=== PATIENT | female | born 1975 | race Two or more races ===

== ENCOUNTER 2023-05-19 12:24 | Inpatient (IN) | payer SELFPAY ==
[2023-05-19] VITALS (10 sets, daily range): BP systolic 133–152; BP diastolic 58–83; PULSE 65–77; RESP 16–23; TEMP 98.7
[~2023-05-19] VITALS: Ht 160 cm; Wt 77.6 kg
[2023-05-19] MEDS: KETOROLAC 30MG/ML VIAL IV ONE (14:07)
[2023-05-19 15:29] LABS: ALANINE AMINOTRANSFERASE 21 IU/L (10-49); ALBUMIN 4.4 g/dL (3.2-4.8); ASPARTATE AMINOTRANSFERASE 21 IU/L (<34); BILIRUBIN TOTAL 0.6 mg/dL (0.1-1.0); CALCIUM 9.7 mg/dL (8.7-10.4); CARBON DIOXIDE 25 mEq/L (21-32); CHLORIDE 103 mEq/L (98-107); CREATININE 0.6 mg/dL (0.6-1.0); GLUCOSE 103 mg/dL (70-105); POTASSIUM 3.8 mEq/L (3.5-5.1); PROTEIN TOTAL 7.1 g/dL (6.0-8.3); SODIUM 141 mEq/L (136-145); UREA NITROGEN BLOOD 7 mg/dL (9-23)
[2023-05-19 15:35] LABS: TROPONIN I HIGH SENSITIVITY < 4 ng/L (3.0-34)
[2023-05-19] MEDS: DEXAMETHASONE 4MG/ML 1ML VIAL IV SCH (19:14)
[2023-05-19] MEDS: DEXT 5%/LACTATED RINGERS 1,000 ML IV SCH (19:15)
[2023-05-19] MEDS: LEVETIRACETAM 500MG PREMIX 100 ML IV SCH (20:51)
[2023-05-19] MEDS ORDERED: NICARDIPINE 100 MG in SODIUM CHLORIDE 0.9% 60 ML IV PRN (22:30)
[2023-05-19] MEDS: MORPHINE SULFATE 2 MG/ML CPJ (NOT FOR IM USE) IV PRN (23:01)
[2023-05-19] MEDS ORDERED: IOHEXOL-350 100 ML BOTTLE ONE (23:24)
[2023-05-20] VITALS (75 sets, daily range): BP systolic 109–152; BP diastolic 58–101; PULSE 64–88; RESP 11–27; TEMP 98–98.7
[2023-05-20 05:31] LABS: BASOPHILS % 0.3 % (0.0-2.0); EOSINOPHILS % 0.1 % (0.0-5.0); HEMATOCRIT. 38.1 % (36.0-48.0); HEMOGLOBIN. 13.1 g/dL (12.0-16.0); LYMPHOCYTES % 10.1 % (20.0-50.0); MEAN CORPUSCULAR HEMOGLOBIN 30.4 pg (28.0-32.0); MEAN CORPUSCULAR HGB CONC 34.5 g/dL (31.0-37.0); MEAN CORPUSCULAR VOLUME 88.2 fL (81.0-99.0); MEAN PLATELET VOLUME 7.8 fl (7.4-10.4); NEUTROPHILS % 88.5 % (40.0-76.0); PLATELET 320 x1000/uL (130-400); RED BLOOD CELL COUNT 4.32 mill/uL (4.2-5.4); RED CELL DISTRIBUTION WIDTH 13.2 % (11.6-14.6); WHITE BLOOD COUNT 8.6 x1000/uL (4.5-11.0)
[2023-05-20 05:44] LABS: CALCIUM 9.1 mg/dL (8.7-10.4); CARBON DIOXIDE 26 mEq/L (21-32); CHLORIDE 106 mEq/L (98-107); CREATININE 0.6 mg/dL (0.6-1.0); GLUCOSE 148 mg/dL (70-105); SODIUM 139 mEq/L (136-145); UREA NITROGEN BLOOD 9 mg/dL (9-23)
[2023-05-20 05:55] LABS: PARTIAL THROMBOPLASTIN TIME 25.6 sec (23.4-31.0); PROTHROMBIN TIME 11.2 sec (9.6-11.0)
[2023-05-20] MEDS ORDERED: CLONIDINE 0.1MG TABLET PO PRN (07:00)
[2023-05-20] MEDS ORDERED: ONDANSETRON HCL 4MG/2ML INJ IV PRN (07:00)
[2023-05-20] MEDS ORDERED: MAGNESIUM/ALUMINUM HYDROXIDE/SIMETHICONE 30ML UDC PO PRN (07:00)
[2023-05-20] MEDS ORDERED: DOCUSATE SODIUM 100MG CAPSULE PO PRN (07:00)
[2023-05-20] MEDS ORDERED: IPRATROPIUM/ALBUTEROL 0.5-3(2.5)MG/3ML NEB HHN PRN (07:00)
[2023-05-20] MEDS ORDERED: ACETAMINOPHEN 325MG TABLET PO PRN (07:00)
[2023-05-20] MEDS ORDERED: GUAIFENESIN 200MG/10ML SUGAR FREE UDC PO PRN (07:00)
[2023-05-20 08:31] LABS: FOLIC ACID (FOLATE) SERUM 13.25 ng/mL (>5.38); VITAMIN B12 SERUM 234 pg/mL (211-911)
[2023-05-20] MEDS: LEVETIRACETAM 500MG PREMIX 100 ML IV SCH (10:30)
[2023-05-20] MEDS: AMLODIPINE 5MG TABLET PO SCH (12:41)
[2023-05-20 14:42] LABS: CREATINE KINASE 45 IU/L (34-145)
[2023-05-20] MEDS: NICARDIPINE 100 MG in SODIUM CHLORIDE 0.9% 60 ML IV PRN (18:12)
[2023-05-20] MEDS: ATORVASTATIN CALCIUM 20MG TABLET PO SCH (21:10)
[2023-05-20] MEDS: FAMOTIDINE 20MG TABLET PO SCH (21:10)
[2023-05-20 23:38] LABS: CREATINE KINASE 32 IU/L (34-145)
[2023-05-21] VITALS (25 sets, daily range): BP systolic 100–143; BP diastolic 42–95; PULSE 66–105; RESP 12–23; TEMP 97.8–98.5
[2023-05-21 05:51] LABS: EOSINOPHILS % 0.1 % (0.0-5.0); HEMATOCRIT. 40.9 % (36.0-48.0); HEMOGLOBIN. 13.7 g/dL (12.0-16.0); LYMPHOCYTES % 10.1 % (20.0-50.0); MEAN CORPUSCULAR HEMOGLOBIN 29.9 pg (28.0-32.0); MEAN CORPUSCULAR HGB CONC 33.5 g/dL (31.0-37.0); MEAN CORPUSCULAR VOLUME 89.4 fL (81.0-99.0); NEUTROPHILS % 86.8 % (40.0-76.0); PLATELET 381 x1000/uL (130-400); RED BLOOD CELL COUNT 4.58 mill/uL (4.2-5.4); RED CELL DISTRIBUTION WIDTH 13.2 % (11.6-14.6)
[2023-05-21 05:53] LABS: CALCIUM 9.3 mg/dL (8.7-10.4); CARBON DIOXIDE 23 mEq/L (21-32); CHLORIDE 107 mEq/L (98-107); CREATININE 0.6 mg/dL (0.6-1.0); GLUCOSE 132 mg/dL (70-105); POTASSIUM 3.8 mEq/L (3.5-5.1); SODIUM 142 mEq/L (136-145); T4 FREE 1.06 ng/dL (0.89-1.76); THYROID STIMULATING HORMONE 0.84 uIU/mL (0.55-4.78); UREA NITROGEN BLOOD 11 mg/dL (9-23)
[2023-05-21] MEDS ORDERED: NALOXONE HCL 0.4MG/ML VIAL IV PRN (08:30)
[2023-05-21] MEDS: AMLODIPINE 10MG TABLET PO SCH (08:40)
[2023-05-21] MEDS ORDERED: NON FORMULARY PATIENT HOME MED XX SCH ×2 (10:00)
[2023-05-21] MEDS: BISOPROLOL FUMARATE 5 MG TABLET PO SCH (10:30)
[2023-05-21] MEDS: LOSARTAN 100 MG TABLET PO SCH (10:30)
[2023-05-22] VITALS (7 sets, daily range): BP systolic 112–134; BP diastolic 66–73; PULSE 57–72; RESP 17–18; TEMP 97.6–98.6; O2SAT 98
[2023-05-22 07:08] LABS: BASOPHILS % 0.2 % (0.0-2.0); HEMOGLOBIN. 13.8 g/dL (12.0-16.0); MEAN CORPUSCULAR HEMOGLOBIN 30.1 pg (28.0-32.0); MEAN CORPUSCULAR HGB CONC 34.4 g/dL (31.0-37.0); MEAN CORPUSCULAR VOLUME 87.4 fL (81.0-99.0); MEAN PLATELET VOLUME 7.9 fl (7.4-10.4); MONOCYTES % 3.4 % (2.0-8.0); NEUTROPHILS % 86.4 % (40.0-76.0); PLATELET 352 x1000/uL (130-400); RED BLOOD CELL COUNT 4.58 mill/uL (4.2-5.4); RED CELL DISTRIBUTION WIDTH 12.8 % (11.6-14.6); WHITE BLOOD COUNT 12.1 x1000/uL (4.5-11.0)
[2023-05-22 07:20] LABS: CALCIUM 9.2 mg/dL (8.7-10.4); CARBON DIOXIDE 25 mEq/L (21-32); CHLORIDE 106 mEq/L (98-107); CREATININE 0.6 mg/dL (0.6-1.0); GLUCOSE 126 mg/dL (70-105); POTASSIUM 4.3 mEq/L (3.5-5.1); SODIUM 140 mEq/L (136-145); UREA NITROGEN BLOOD 12 mg/dL (9-23)
[2023-05-22] MEDS ORDERED: ATOR20TA PO (07:55)
== END 2023-05-22 10:46 | disposition home or self-care (01) | DRG 44 ==
LOC: ER 12:24 → EDBEDREQ 17:32 → EDBEDREQTM 17:32 → MICUSO 22:47 → 5EST 05-22 01:57
PROVIDERS: ADMIT Internal Medicine; ATTEND Internal Medicine
DX: I61.1 Nontraumatic intracerebral hemorrhage in hemisphere, cortical (principal); E78.5 Hyperlipidemia, unspecified; G43.909 Migraine, unspecified, not intractable, without status migrainosus; I10 Essential (primary) hypertension; I89.0 Lymphedema, not elsewhere classified; Z79.899 Other long term (current) drug therapy; Z85.72 Personal history of non-Hodgkin lymphomas
CPT/HCPCS: 36415; 70496; 71045; 80048; 80053; 80061; 82550; 82607; 82746; 82962; 83036; 84439; 84443; 84484; 85025; 85379; 92610; 93005; 93306; 93970; 97162; 99291; J1100; J1885; J1953; J2270; J3490; J7050; Q9967